=== PATIENT | male | born 1960 | race Caucasian/White ===

== ENCOUNTER 2021-03-17 10:01 | Outpatient (CLI) | payer BC, SELFPAY ==
--- NOTE | 2021-03-17 10:17 | EST_ITS ---
Patient Info Name: Murray Nash Age: 60 years : 1960 Gender: Male Ht: 72 in Wt: 165 lbs BSA: 1.95 m2 HR: 73 bpm BP: 150 / 89 mmHg Heart Rhythm: Sinus Rhythm Exam Date: 03/17/2021 10:49 AM Exam Location: [facility] Pul[facility] Patient Status: Outpatient Admit Date: 03/17/2021 Staff Ordering Physician: Mark Lewis DO It Specialist: Luna Ham RDCS Attending Provider: GOLDY GARCIA DO Referring Physician: Debbie GARCIA; Exam Type: CA stress echo Study Info Indications R07.89 - Other chest pain R06.00 - Dyspnea, unspecified Treadmill exercise stress echocardiogram is performed. Summary 1. 1. Negative Kelvin exercise stress test for ischemic ST changes by ECG criteria. 2. 2. Good functional capacity, achieving 10 METs of workload. 3. 3. Baseline hypertension with hypertensive response to exercise. 4. 4. Appropriate HR response to exercise. 5. 5. Appropriate HR recovery at 1 minute post exercise. 6. 6. Negative stress echocardiogram for ischemia by wall motion analysis. 7. 7. Patient informed of the above results. Stress Echo Findings Left Ventricle Appropriate increase in LV endocardial thickening with systole. Appropriate augmentation of contractility with systole. No wall motion abnormality. Left Ventricle Normal LV systolic function, no wall motion abnormality. Protocol: Kelvin Stress ECG Details Stage: REST Duration (min): 7 min : 9 sec Speed (mph): 0.0 Grade (%): 0 HR (bpm): 72 SBP (mmHg): 150 DBP (mmHg): 89 METS: --- Stage: REST Duration (min): 18 min : 39 sec Speed (mph): 0.0 Grade (%): 0 HR (bpm): 71 SBP (mmHg): 150 DBP (mmHg): 89 METS: --- Stage: STAGE 1 Duration (min): 1 min : 0 sec Speed (mph): 1.7 Grade (%): 10 HR (bpm): 100 SBP (mmHg): 150 DBP (mmHg): 89 METS: --- Stage: STAGE 1 Duration (min): 2 min : 0 sec Speed (mph): 1.7 Grade (%): 10 HR (bpm): 111 SBP (mmHg): 150 DBP (mmHg): 89 METS: --- Stage: STAGE 1 Duration (min): 3 min : 0 sec Speed (mph): 1.7 Grade (%): 10 HR (bpm): 114 SBP (mmHg): 181 DBP (mmHg): 85 METS: --- Stage: STAGE 2 Duration (min): 1 min : 0 sec Speed (mph): 2.5 Grade (%): 12 HR (bpm): 121 SBP (mmHg): 181 DBP (mmHg): 85 METS: --- Stage: STAGE 2 Duration (min): 2 min : 0 sec Speed (mph): 2.5 Grade (%): 12 HR (bpm): 125 SBP (mmHg): 217 DBP (mmHg): 86 METS: --- Stage: STAGE 2 Duration (min): 3 min : 0 sec Speed (mph): 2.5 Grade (%): 12 HR (bpm): 129 SBP (mmHg): 217 DBP (mmHg): 86 METS: --- Stage: STAGE 3 Duration (min): 1 min : 0 sec Speed (mph): 3.4 Grade (%): 14 HR (bpm): 134 SBP (mmHg): 188 DBP (mmHg): 95 METS: --- Stage: STAGE 3 Duration (min): 2 min : 0 sec Speed (mph): 3.4 Grade (%): 14 HR (bpm): 140 SBP (mmHg): 188 DBP (mmHg): 95 METS: ---
== END 2021-03-17 10:02 | disposition home or self-care (01) ==
LOC: ANHCARD 10:04
PROVIDERS: PCP Internal Medicine; Visit Provider Internal Medicine
DX: R06.00 Dyspnea, unspecified (principal); R07.89 Other chest pain
CPT/HCPCS: 93351

== ENCOUNTER → 2021-10-06 01:02 | Outpatient (CLI) | payer BC, SELFPAY ==
[2021-10-07 02:02] LABS: SARS-CoV-2 RNA PCR Negative
== END ==
PROVIDERS: PCP Internal Medicine; Visit Provider Surgery
DX: Z01.812 Encounter for preprocedural laboratory examination (principal); Z20.822 Contact with and (suspected) exposure to COVID-19
CPT/HCPCS: C9803; U0003; U0005

== ENCOUNTER 2021-10-06 07:34 | Outpatient (CLI) | payer BC, SELFPAY ==
[2021-10-06 08:03] LABS: Alanine Aminotransferase 47 U/L (4-50); Albumin Level 4.3 g/dL (3.5-5.1); Alkaline Phosphatase 169 U/L (38-126); Amylase 133 U/L (30-110); Aspartate Amino Transferase 25 U/L (17-59); Bilirubin,Total 0.9 mg/dL (0.2-1.3); Lipase 969 U/L (23-300)
== END 2021-10-06 07:35 | disposition home or self-care (01) ==
LOC: ANHSURGERY 07:38
PROVIDERS: PCP Internal Medicine; Visit Provider Surgery
DX: K80.10 Calculus of gallbladder with chronic cholecystitis without obstruction (principal); Z01.818 Encounter for other preprocedural examination
CPT/HCPCS: 36415; 80076; 82150; 83690; 86850; 86900; 86901

== ENCOUNTER 2021-10-08 02:40 | Day surgery (SDC) | payer BC, SELFPAY ==
[2021-10-05 10:27] VITALS: BMI 21.5
--- NOTE | 2021-10-05 10:39 | PC.NURSE ---
Report to the Outpatient Waiting Room, entrance under the green pavilion located off [facility], at time _11:30AM on date _10/08/21 . OR Time: ___1:30PM . - You and your visitor will be asked a series of questions to screen for COVID 19 for your protection. - A mask is required within the hospital. - Only one visitor is allowed at this time. Patient visitors will be guided where to wait when not with patient. Preoperative COVID Testing Requirements: No COVID Test needed if: (proof is required; if not received patient will have Rapid Test prior to entry) - Patient has received COVID Vaccine at least 14 days prior to procedure date or - Patient has positive COVID test result within last 90 days of surgery date. COVID Test needed if above criteria is not met 10/06/21 AM If not COVID vaccinated a COVID test must be conducted within 72 hours of surgery and patient is asked to isolate self from time of testing until procedure. You will go to the [facility] Testing Site for your COVID testing. The [facility] Testing site is located at the corner of [address] [facility]. You will only be called if COVID results are positive and your surgeon may reschedule your elective surgery date. Patients may have clear liquids (water, carbonated beverages, clear teas, apple juice) until 3 hours prior to surgery with a maximum of 20 ounces. - No food from midnight until time of surgery - Infants may have breast milk until 4 hours before surgery, formula 6 hours prior to surgery. - Children will be allowed to drink immediately following surgery. If applicable, please bring a bottle or sippy cup to assist with drinking. Juice, water, soda, and popsicles are readily available. For infants on formula, please bring formula the day of surgery. Pacifiers are allowed. Take the following medications with a SIP of water the morning of surgery: ADVAIR DISKCUS Medications to discontinue per physician ALL VITAMINS/SUPPLEMENTS 3 DAYS PRE-OP Date to take last dose 10/05/21 Please no make-up, nail turkmen, hairspray, perfume, deodorant, or body powder the day of surgery. No jewelry (including any body piercings) or valuables the day of surgery, leave them at home. Please take a shower or bath the night before, or the morning of, surgery with an antibacterial soap. Wear comfortable, loose fitting clothing. Children are encouraged to wear pajamas. - Jewelry must be removed prior to entering the operating room. Rings and piercings that are not removed may be cut off. - The hospital will not accept responsibility for valuables. - Please leave all valuables, including medications, at home the day of surgery. If you are going home after surgery, a licensed flatbed truck driver must drive you home. - NO public transportation without another adult. - We recommend that an adult stay with you for 24 hours following discharge. - We also recommend that you do not drive, make important decision, drink alcoholic beverages, or take any drugs that were not prescribed by your health care provider for at least 24 hours after your discharge time. For Pediatric surgeries, we recommend two adults accompany the child home (only one inside the building at this time). Follow any additional instructions given to you from your surgeon. Telephone instructions given to ___PT'S , EMRE and asked if any additional questions and then verbalized understanding. Patient advised to call surgeon office or pre surgery nurse liaison [phone] if any additional questions.
--- NOTE | 2021-10-05 10:49 | PC.NURSE ---
Report to the Outpatient Waiting Room, entrance under the green pavilion located off [facility], at time _11:30AM on date _10/08/21 . OR Time: __1:30PM . - You and your visitor will be asked a series of questions to screen for COVID 19 for your protection. - A mask is required within the hospital. - Only one visitor is allowed at this time. Patient visitors will be guided where to wait when not with patient. Preoperative COVID Testing Requirements: No COVID Test needed if: (proof is required; if not received patient will have Rapid Test prior to entry) - Patient has received COVID Vaccine at least 14 days prior to procedure date or - Patient has positive COVID test result within last 90 days of surgery date. COVID Test needed if above criteria is not met If not COVID vaccinated a COVID test must be conducted within 72 hours of surgery and patient is asked to isolate self from time of testing until procedure. You will go to the [facility] Testing Site for your COVID testing. The [facility] Testing site is located at the corner of [address] [facility]. You will only be called if COVID results are positive and your surgeon may reschedule your elective surgery date. Patients may have clear liquids (water, carbonated beverages, clear teas, apple juice) until 3 hours prior to surgery with a maximum of 20 ounces. - No food from midnight until time of surgery - Infants may have breast milk until 4 hours before surgery, formula 6 hours prior to surgery. - Children will be allowed to drink immediately following surgery. If applicable, please bring a bottle or sippy cup to assist with drinking. Juice, water, soda, and popsicles are readily available. For infants on formula, please bring formula the day of surgery. Pacifiers are allowed. Take the following medications with a SIP of water the morning of surgery: ____ADVAIR DISKUS Medications to discontinue per physician ALL VITAMINS/SUPPLEMENTS Date to take last dose____10/05/21 Please no make-up, nail amharic, hairspray, perfume, deodorant, or body powder the day of surgery. No jewelry (including any body piercings) or valuables the day of surgery, leave them at home. Please take a shower or bath the night before, or the morning of, surgery with an antibacterial soap. Wear comfortable, loose fitting clothing. Children are encouraged to wear pajamas. - Jewelry must be removed prior to entering the operating room. Rings and piercings that are not removed may be cut off. - The hospital will not accept responsibility for valuables. - Please leave all valuables, including medications, at home the day of surgery. If you are going home after surgery, a licensed route driver must drive you home. - NO public transportation without another adult. - We recommend that an adult stay with you for 24 hours following discharge. - We also recommend that you do not drive, make important decision, drink alcoholic beverages, or take any drugs that were not prescribed by your health care provider for at least 24 hours after your discharge time. For Pediatric surgeries, we recommend two adults accompany the child home (only one inside the building at this time). Follow any additional instructions given to you from your surgeon. Telephone instructions given to __PATIENT'S , EMRE and asked if any additional questions and then verbalized understanding. Patient advised to call surgeon office or pre surgery nurse liaison [phone] if any additional questions.
--- NOTE | 2021-10-05 10:55 | PC.NURSE ---
Report to the Outpatient Waiting Room, entrance under the green pavilion located off [facility], at time _11:30AM on date 10/08/21 . OR Time: ___1:30PM . - You and your visitor will be asked a series of questions to screen for COVID 19 for your protection. - A mask is required within the hospital. - Only one visitor is allowed at this time. Patient visitors will be guided where to wait when not with patient. Preoperative COVID Testing Requirements: No COVID Test needed if: (proof is required; if not received patient will have Rapid Test prior to entry) - Patient has received COVID Vaccine at least 14 days prior to procedure date or - Patient has positive COVID test result within last 90 days of surgery date. COVID Test needed if above criteria is not met If not COVID vaccinated a COVID test must be conducted within 72 hours of surgery and patient is asked to isolate self from time of testing until procedure. You will go to the [facility] Testing Site for your COVID testing. The [facility] Testing site is located at the corner of [address] from [facility]. You will only be called if COVID results are positive and your surgeon may reschedule your elective surgery date. Patients may have clear liquids (water, carbonated beverages, clear teas, apple juice) until 3 hours prior to surgery with a maximum of 20 ounces. - No food from midnight until time of surgery - Infants may have breast milk until 4 hours before surgery, formula 6 hours prior to surgery. - Children will be allowed to drink immediately following surgery. If applicable, please bring a bottle or sippy cup to assist with drinking. Juice, water, soda, and popsicles are readily available. For infants on formula, please bring formula the day of surgery. Pacifiers are allowed. Take the following medications with a SIP of water the morning of surgery: ____ADVAIR DISKUS Medications to discontinue per physician ALL VITAMINS/SUPPLEMENTS 3 DAYS PRE-OP Date to take last dose___10/05/21 Please no make-up, nail slovak, hairspray, perfume, deodorant, or body powder the day of surgery. No jewelry (including any body piercings) or valuables the day of surgery, leave them at home. Please take a shower or bath the night before, or the morning of, surgery with an antibacterial soap. Wear comfortable, loose fitting clothing. Children are encouraged to wear pajamas. - Jewelry must be removed prior to entering the operating room. Rings and piercings that are not removed may be cut off. - The hospital will not accept responsibility for valuables. - Please leave all valuables, including medications, at home the day of surgery. If you are going home after surgery, a licensed roll off driver must drive you home. - NO public transportation without another adult. - We recommend that an adult stay with you for 24 hours following discharge. - We also recommend that you do not drive, make important decision, drink alcoholic beverages, or take any drugs that were not prescribed by your health care provider for at least 24 hours after your discharge time. For Pediatric surgeries, we recommend two adults accompany the child home (only one inside the building at this time). Follow any additional instructions given to you from your surgeon. Telephone instructions given to __PATIENT'S , EMRE and asked if any additional questions and then verbalized understanding. Patient advised to call surgeon office or pre surgery nurse liaison [phone] if any additional questions.
--- NOTE | ~2021-10-08 | XR_ITS ---
EXAMINATION: 10/08/2021 18:47 DATE: 10/08/2021 19:00 LIGHT OUT EXAMINER INDICATION: Cholecystectomy, intraoperative cholangiogram TECHNIQUE: Intraoperative cholangiogram with 2 contrast run(s) provided for review. 222 fluoroscopic images. 33 seconds of fluoroscopy. FINDINGS: There is cannulation and contrast administration into the cystic duct remnant. There is no discrete filling defect in the common bile duct to suggest common bile duct stone. Contrast flows fr eely into the duodenum. IMPRESSION: 1. Patent cystic duct remnant and common bile duct, without common bile duct stone. Reviewed, dictated and finalized at location A. T OUT EXAMINER IMPRESSION: 1. Patent cystic duct remnant and common bile duct, without common bile duct s tone.
[2021-10-08] MEDS: LACTATED RINGERS 1,000 ML 30 ML IV CONT ×2 (12:33→18:58)
[2021-10-08] MEDS: ACETAMINOPHEN 500 MG TABLET 1000 MG PO (12:33)
[2021-10-08] MEDS: KETOROLAC 15 MG/ML VIAL (*BKC) IV PUSH ×2 (12:35→18:44)
[2021-10-08 12:51] LABS: Alanine Aminotransferase 30 U/L (4-50); Albumin Level 4.3 g/dL (3.5-5.1); Alkaline Phosphatase 163 U/L (38-126); Amylase 106 U/L (30-110); Aspartate Amino Transferase 21 U/L (17-59); Bilirubin,Total 0.6 mg/dL (0.2-1.3); Lipase 542 U/L (23-300)
--- NOTE | 2021-10-08 15:43 | SUR.PREOP ---
Discussed continued delay due to emergency case. Voices understanding.
--- NOTE | 2021-10-08 16:07 | SUR.PREOP ---
This nurse is monitoring this pt until he goes for surgery. There is a delay in the onset of pt surgery due to the previous surgery going longer. pt in NAD and breathing even and unlabored. pt denies any needs at this time and is watching TV. pt still needs an update and to be seen by the surg md and ane md. will continue to monitor.
--- NOTE | 2021-10-08 16:10 | SUR.PREOP ---
pt was offered if he needs to go to the bathroom and pt refused.
--- NOTE | 2021-10-08 16:30 | SUR.PHASEII ---
pt is at bedside and pt denies any needs at this time. pt is breathing even and unlabored and in NAD.
--- NOTE | 2021-10-08 16:34 | WPDANESEPPF ---
Anes - Initial Pre Proc Eval Procedure: Operation Date: 10/08/21 14:00 Proposed Procedures p Laparoscopic Cholecystectomy with Intraoperative Cholangiogram - Cristiano Wells MD Date/Time: 10/08/21 16:34 Surgeon: Cristiano Wells MD Pre Op Diagnosis: chronic cholecystitis with stones Patient Data Age: 61 Gender: M Height: 1.83 m Weight: 72.2 kg Allergies Allergy/AdvReac Type Severity Reaction Status Date / Time No Known Allergies Allergy Mild Verified 10/08/21 12:04 Home Medications Medication Instructions Recorded Confirmed Type aspirin 81 mg tablet,delayed 81 mg PO DAILY 08/18/20 10/08/21 History release thiamine HCl (vitamin B1) 250 mg 250 mg PO DAILY 08/18/20 10/08/21 History tablet fluticasone propionate 50 2 spray INTRANASAL DAILY PRN #15.8 02/17/21 10/05/21 Rx mcg/actuation nasal ml spray,suspension fluticasone 250 mcg-salmeterol 50 1 inh INHALATION BID #60 ea 03/31/21 10/08/21 Rx mcg/dose blistr powdr for inhalation gemfibrozil 600 mg tablet 600 mg PO DAILY #90 tablet 07/28/21 10/08/21 Rx pantoprazole 40 mg tablet,delayed 40 mg PO QAM #90 tablet 07/31/21 10/08/21 Rx release carvedilol 6.25 mg PO HS 10/05/21 10/08/21 History losartan 100 mg PO QAM 10/05/21 10/08/21 History Laboratory Tests 10/08/21 12:25 Total Bilirubin 0.6 mg/dL mg/dL (0.2-1.3) Direct Bilirubin 0.0 mg/dL mg/dL (0-0.3) AST 21 U/L U/L (17-59) ALT 30 U/L U/L (4-50) Alkaline Phosphatase 163 U/L H U/L (38-126) Total Protein 6.0 g/dL L g/dL (6.3-8.2) Albumin 4.3 g/dL g/dL (3.5-5.1) Amylase 106 U/L U/L (30-110) Lipase 542 U/L H U/L (23-300) Patient hx anesthesia problems: none Family hx anesthesia problems: none Results Review: All pre-operative results and documents have been reviewed as part of the pre-operative evaluation. [facility] Past Medical History Medical History (Updated 10/01/21 @ 08:58 by Lexy Cantrell) Anemia CVA (cerebrovascular accident) Heart disease Hypertension Surgical History Surgical History H/O colonoscopy 08/2021 History of back surgery 2014 Family History Family History Mother Patient's mother is in good health Father Acute myocardial infarction, Onset Age: 58 Patient's father is Social History Social History Social History: caffeine use: soda Smoking packs per day: 1.5 Smoking cigarettes per day: 30.0 Years smoked: 42 Smoking pack-years: 63.00 Smoking status: Current every day smoker Tobacco type: cigarettes Alcohol intake: current Drinks per week: 24 Substance use: never Living arrangements: with family Additional living arrangements comments: Additional occupation/education comments: Sales Team Manager Spiritual care concerns: No Anes - Eval Final PreProcedure Day of Procedure 10/08/21 16:34 Patient weight: normal Heart: regular rate and rhythm Lungs: clear to auscultation and normal air movement Airway: Mallampati scale class II Neurological: alert and oriented Last oral intake: >/= 8 hours ASA classification: III Emergent: no Anesthetic plan: proceed Anesthesia type and monitoring: general ETT and standard monitoring Results Review: All pre-operative results and documents have been reviewed as part of the pre-operative evaluation. Informed Consent: The patient's anesthetic plan and its attendant risks and benefits were discussed with the patient/family/POA. Questions were solicited and answers provided to the satisfaction of the patient/family/POA.
--- NOTE | 2021-10-08 16:36 | SUR.PREOP ---
dr gonzalez come to bedside to see pt.
--- NOTE | 2021-10-08 17:14 | WPDHPUPDATE1 ---
History and Physical Update Update Date/Time: 10/08/21 17:14 History and Physical has been reviewed, including an updated exam of the patient. There are NO changes in the patient's condition. Risks, benefits, and alternatives have been discussed and questions answered. Patient agrees to proceed with procedure.
--- NOTE | 2021-10-08 17:22 | SUR.PREOP ---
md kilgore came in to see pt. pt breathing even and unlabored. pt denies any needs at this time. pt in NAD.
[2021-10-08] MEDS: ceFAZolin 2 GM/D5W 50 ML 2 GM/50 ML BAG IVPB (17:35)
[2021-10-08] MEDS: BUPIVACAINE HCL 0.5% PF 30 ML VIAL INFILTRATE (18:11)
[2021-10-08 18:58] VITALS: BP 155/89; PULSE 57; RESP 12; TEMP 36.2; O2SAT 100
[2021-10-08 19:00] VITALS: BP 162/88; PULSE 56; RESP 12; O2SAT 100
[2021-10-08 19:15] VITALS: BP 161/88; PULSE 72; RESP 15; O2SAT 100
--- NOTE | 2021-10-08 19:15 | W.PM.PROC2 ---
Procedure Note - Detailed Date of Procedure 10/08/21 Pre-op Diagnosis Biliary pancreatitis, chronic cholecystitis cholelithiasis Post-op Diagnosis same Procedure Performed Laparoscopic cholecystectomy with intraoperative cholangiogram Surgeon Cristiano Wells MD [employer] Lila ROY Anesthesia general and local (0.5% MARCAINE) Indications Patient is a 61-year-old man with episodes of right upper quadrant severe abdominal pain sometimes associated with nausea. He had an ultrasound which showed gallstones. He had a particularly severe episode about 1 week ago. Testing done prior to surgery showed an elevated lipase and amylase and slightly elevated LFTs. Patient was doing well. We proceeded with the surgery but got repeat lab work today which showed improvement in the LFTs and a lipase. Amylase was now normal. He is felt to have had an episode of biliary pancreatitis about a week ago which is resolving. He is taken to surgery now for laparoscopic cholecystectomy with intraoperative cholangiogram. Findings Chronic inflammation was noted. There were multiple stones in the gallbladder. Intraoperative cholangiogram showed prompt duodenal filling and no lucencies to suggest biliary ductal stones. Liver appeared normal. Description of Procedure Patient was taken to surgery and induced into general anesthesia. The abdomen was prepped and draped. Trocars were placed in the usual fashion using 0.5% Marcaine and applied Medical optical trocars. A 5 mm camera was used. The gallbladder was retracted anterosuperiorly. Dissection was carried out in the cholecystohepatic triangle. The cystic duct and cystic artery were dissected. The gallbladder was dissected off the liver that is lower 3rd. Critical view was achieved. We securely clipped and divided the cystic artery. The cystic duct was clipped at its junction with the gallbladder. I then opened the cystic duct just below this for cholangiogram. Cine cholangiography was then performed. Findings were as above. The cholangiogram catheter was removed. The cystic duct was securely clipped and then divided. We dissected the gallbladder free of its remaining peritoneal attachments to the liver. Once freed, it was placed in an Endo-Catch bag and retrieved through the 10 11 epigastric trocar site. We replaced the epigastric trocar reviewed the right upper quadrant and gallbladder fossa. Repeated irrigation and suctioning were carried out. No evidence of bleeding or bile leakage was noted. We then evacuated CO2 and removed the trocar sleeves. The fascia at the epigastric trocar site was closed with 0 Vicryl suture. Skin wounds were closed with subcuticular 4-0 Monocryl skin suture. The wounds were dressed with Exofin surgical adhesive. Patient was awakened and taken to recovery in good condition. Sponge and needle counts were correct x2. Estimated Blood Loss 10 Drains No Packing No Pathology yes (Gallbladder) Complications No immediate complications Condition stable Disposition PACU
[2021-10-08 19:30] VITALS: BP 168/88; PULSE 70; RESP 21; O2SAT 100
[2021-10-08 19:36] VITALS: BP 170/86; PULSE 75; RESP 20
[2021-10-08 20:06] VITALS: BP 158/94; PULSE 73; RESP 20
[2021-10-08] MEDS: oxyCODONE HCL (*CRX) 5 MG TAB IR PO (20:08)
== END 2021-10-08 20:20 | disposition home or self-care (01) ==
PROVIDERS: PCP Internal Medicine; Visit Provider Surgery
PROC: 0FT44ZZ Resection of Gallbladder, Percutaneous Endoscopic Approach (ICD-10-PCS; CPT 47562; principal; 2021-10-08 14:00)
DX: K80.10 Calculus of gallbladder with chronic cholecystitis without obstruction (principal); K85.10 Biliary acute pancreatitis without necrosis or infection; I11.9 Hypertensive heart disease without heart failure; Z79.82 Long term (current) use of aspirin; Z86.73 Personal history of transient ischemic attack (TIA), and cerebral infarction without residual deficits; F17.210 Nicotine dependence, cigarettes, uncomplicated
CPT/HCPCS: 47562; 36415; 74300; 80076; 82150; 83690; 88304; A9270; C1713; J0690; J1100; J1885; J2250; J2405; J2704; J2710; J3010; J7120; Q9966